=== PATIENT | male | born 1980 | race Two or more races ===

== ENCOUNTER 2017-03-01 09:13 | Emergency (ER) | payer OTHER ==
[~2017-03-01] VITALS: Ht 175.3 cm; Wt 103.9 kg
--- NOTE | 2017-03-01 09:30 | NUR ---
PT LEFT FOR CT VIA GURNEY.
[2017-03-01] MEDS ORDERED: LEVE500T9 PO (09:34)
[2017-03-01] MEDS ORDERED: DIVA500T2 PO (09:34)
[2017-03-01] MEDS ORDERED: PHEN100C4 PO (09:34)
--- NOTE | 2017-03-01 09:39 | NUR ---
PT RETURNED FROM CT.
[2017-03-01 09:49] LABS: PHENYTOIN (DILANTIN) 7.2 ug/ml (10.0-20.0)
[2017-03-01] MEDS ORDERED: LORAZEPAM 1 MG TABLET ONE (09:52)
[2017-03-01] MEDS ORDERED: LORAZEPAM 1 MG TABLET PO ONE (10:00)
--- NOTE | 2017-03-01 10:03 | NUR ---
Patient discharged to home in stable condition. Written and verbal after care instructions given. Patient verbalizes understanding of instruction. PT'S MOTHER IS DRIVING PT HOME. VSS.
[2017-03-01 10:04] VITALS: BP 114/79
== END 2017-03-01 10:05 | disposition home or self-care (01) ==
LOC: ER 09:15
DX: G40.909 Epilepsy, unspecified, not intractable, without status epilepticus (principal); R51 Headache; D49.6 Neoplasm of unspecified behavior of brain
CPT/HCPCS: 36415; 70450-TC; 80164-TC; 80185-TC; A4606; Z7610

== ENCOUNTER 2017-07-28 00:22 | Emergency (ER) | payer OTHER ==
[~2017-07-28] VITALS: Ht 175.3 cm; Wt 102.1 kg
[~2017-07-28 00:22] MED LIST: DIVA500T2 PO; LEVE500T9 PO; PHEN100C4 PO
--- NOTE | 2017-07-28 01:10 | NUR ---
PT CAME IN HOME WITH MOTHER, PER MOTHER "HE HAS HX OF BRAIN TUMORS AND SEIZURES, HE HAD A SEIZURE TODAY LASTING 30 SECONDS" PT A/O X 2 AT BASELINE, BREATHING EVEN/UNLABORED, NO C/O PAIN, SKIN WARM/DRY/INTACT
--- NOTE | 2017-07-28 01:18 | NUR ---
BACK FROM RADIOLOGY ON [facility]. AGNES ROY NOTED.
[2017-07-28 01:28] LABS: BASOPHILS % (AUTO) 0.5 % (0.0-2.0); EOSINOPHILS # (AUTO) 0.2 /CMM (0.0-0.7); EOSINOPHILS % (AUTO) 3.3 % (0.0-6.0); HEMATOCRIT 45 % (39-51); HEMOGLOBIN 15.6 g/dL (13.5-17.5); LYMPHOCYTES # (AUTO) 3.5 /CMM (0.8-4.8); LYMPHOCYTES % (AUTO) 48.2 % (20.0-44.0); MEAN CORPUSCULAR HEMOGLOBIN 32 PG (26.0-33.0); MEAN CORPUSCULAR HGB CONC 35 g/dl (31.0-36.0); MEAN CORPUSCULAR VOLUME 92 fL (80-96); MONOCYTES # (AUTO) 0.4 /CMM (0.1-1.30); MONOCYTES % (AUTO) 5.7 % (2.0-12.0); NEUTROPHILS % (AUTO) 42.3 % (43.0-81.0); PLATELET COUNT (AUTO) 206 /CMM (150-450); RDW COEFFICIENT OF VARIATION 12.9 (11.5-15.0); RED BLOOD CELL COUNT(AUTO) 4.88 MIL/uL (4.5-6.0); WHITE BLOOD COUNT (AUTO) 7.2 K/uL (4.3-11.0)
[2017-07-28 01:38] LABS: CALCIUM, SERUM 8.5 mg/dL (8.5-10.1); CREATININE 0.7 mg/dL (0.6-1.3); POTASSIUM 3.7 mmol/L (3.5-5.1)
[2017-07-28 01:44] LABS: ALBUMIN 3.7 g/dL (3.4-5.0); BILIRUBIN,TOTAL 0.2 mg/dL (0.2-1.0)
--- NOTE | 2017-07-28 02:05 | NUR ---
pt lying in bed, mother bedside, breathing even/unlabored, no c/o pain at this time, skin dry/intact
--- NOTE | 2017-07-28 02:50 | NUR ---
pt lying in bed, aroused to voice, breathing unlabored, no c/o pain, NAD noted at this time
[2017-07-28 03:13] LABS: APPEARANCE,URINE CLEAR (CLEAR); BILIRUBIN,URINE NEGATIVE (NEGATIVE); BLOOD, URINE NEGATIVE Ery/uL (NEGATIVE); COLOR,URINE YELLOW (YELLOW); KETONES,URINE 1+ (NEGATIVE); LEUKOCYTE ESTERASE ,URINE NEGATIVE (NEGATIVE); NITRITE, URINE NEGATIVE (NEGATIVE); PROTEIN,URINE NEGATIVE (NEGATIVE); UGLUCOSE NEGATIVE (NEGATIVE); UROBILINOGEN,URINE 0.2 EU/dL (0.2)
[2017-07-28 03:16] LABS: BACTERIA,URINE Rare /HPF (None Seen); RBC,URINE 0-2 /HPF (0-2); SQUAMOUS EPITHELIAL CELL,UR Few /HPF (None Seen); WBC,URINE 0-2 /HPF (0-3)
[2017-07-28 03:29] VITALS: BP 114/71
== END 2017-07-28 03:30 | disposition home or self-care (01) ==
LOC: ER 00:24
DX: G40.909 Epilepsy, unspecified, not intractable, without status epilepticus (principal)
CPT/HCPCS: 36415; 70450; 71010; 80048; 80076; 80185; 81001; 82962; 85025; 93005; 99285; A4606; Z7610; 81000-TC

== ENCOUNTER 2018-10-12 21:14 | Emergency (ER) | payer MEDICAID, OTHER ==
[~2018-10-12] VITALS: Ht 182.9 cm; Wt 99.8 kg
--- NOTE | 2018-10-12 22:15 | NUR ---
PT BIB FAMILY FOR HAVING ON AND OFF SEIZURES DURING THE DAY. PT MOM STATES THAT THE PT HAS BEEN "HAVING SEIZURES EVERY MINUTE AND THAT SHE GAVE AND EXTRA DOSE OF DILANTIN." PT IS NOT HAVING SEIZURE AT THIS MOMENT. PT IS ALERT AND AWAKE. NAD NOTED. RESPIRATIONS EVEN AND UNLABORED. PT PUT ON THE MONITOR. PENDING EVAL FROM ER .
--- NOTE | 2018-10-12 22:15 | NUR ---
SUPERVISOR NATURAL GAS PLANT AT BEDSIDE, LABS DRAWN AND SENT TO LAB.
[2018-10-12 22:33] LABS: BASOPHILS % (AUTO) 0.2 % (0.0-2.0); EOSINOPHILS % (AUTO) 2.2 % (0.0-6.0); HEMATOCRIT 44 % (39-51); HEMOGLOBIN 15.4 g/dL (13.5-17.5); LYMPHOCYTES # (AUTO) 4.1 /CMM (0.8-4.8); LYMPHOCYTES % (AUTO) 44.2 % (20.0-44.0); MEAN CORPUSCULAR HGB CONC 35 g/dl (31.0-36.0); MEAN CORPUSCULAR VOLUME 93 fL (80-96); MONOCYTES # (AUTO) 0.6 /CMM (0.1-1.30); MONOCYTES % (AUTO) 6.5 % (2.0-12.0); NEUTROPHILS # (AUTO) 4.4 /CMM (1.8-8.9); NEUTROPHILS % (AUTO) 46.9 % (43.0-81.0); PLATELET COUNT (AUTO) 215 /CMM (150-450); RED BLOOD CELL COUNT(AUTO) 4.71 MIL/uL (4.5-6.0); WHITE BLOOD COUNT (AUTO) 9.4 K/uL (4.3-11.0)
--- NOTE | 2018-10-12 22:40 | NUR ---
XRAY AT BEDSIDE.
[2018-10-12 22:44] LABS: CALCIUM, SERUM 8.1 mg/dL (8.5-10.1); CARBON DIOXIDE 29 mmol/L (21-32); CHLORIDE 105 mmol/L (98-107); CREATININE 0.7 mg/dL (0.6-1.3); GLUCOSE 107 mg/dL (74-106); SODIUM SERUM 144 mmol/L (136-145); UREA NITROGEN, BLOOD 14 mg/dL (7-18)
[2018-10-12 22:50] LABS: ALBUMIN 3.7 g/dL (3.4-5.0); ALCOHOL, BLOOD < 3 mg/dL (0-0); ALKALINE PHOSPHATASE 88 U/L (46-116); BILIRUBIN,TOTAL 0.2 mg/dL (0.2-1.0)
--- NOTE | 2018-10-12 22:56 | NUR ---
PT TAKEN TO CT.
--- NOTE | 2018-10-12 23:07 | NUR ---
PT RETURNED FROM CT AND PUT ON THE MONITOR. PT RESTING NAD NOTED.
[2018-10-12 23:14] LABS: ALANINE AMINOTRANSFERASE 40 U/L (12-78); ASPARTATE AMINOTRANSFERASE 19 U/L (15-37)
--- NOTE | 2018-10-12 23:37 | NUR ---
Pt being monitored.
[2018-10-12] MEDS ORDERED: phenytoin SODIUM IV 250 MG/5 ML VIAL IV ONE (23:59)
[2018-10-13] MEDS: PHENYTOIN SODIUM IV 1,000 MG in IV NS 0.9% 100 ML IV ONE (00:09)
[2018-10-13] MEDS: IV NS 0.9% 500 ML BAG IV ONE (00:09)
--- NOTE | 2018-10-13 00:41 | NUR ---
rPatient is resting comfortably in bed with eyes closed. Easily aroused. VSS
--- NOTE | 2018-10-13 01:34 | NUR ---
Patient discharged to home in stable condition. Written and verbal after care instructions given. Patient verbalizes understanding of instruction.IV removed. Catheter intact and site benign. Pressure and 4x4 applied to site. No bleeding noted.
[2018-10-13 01:37] VITALS: BP 120/84
== END 2018-10-13 01:39 | disposition home or self-care (01) ==
LOC: ER 21:16
DX: G40.909 Epilepsy, unspecified, not intractable, without status epilepticus (principal); R89.2 Abnormal level of other drugs, medicaments and biological substances in specimens from other organs, systems and tissues; R94.31 Abnormal electrocardiogram [ECG] [EKG]; Z98.890 Other specified postprocedural states
CPT/HCPCS: 36415; 70450-TC; 71045-TC; 80048-TC; 80076-TC; 80185-TC; 80305; 82962-TC; 85025-TC; 85730-TC; G0480; J1165; J7030; J7040

== ENCOUNTER 2019-04-06 12:43 | Emergency (ER) | payer MEDICAID ==
[~2019-04-06] VITALS: Ht 175.3 cm; Wt 112.0 kg
[2019-04-06 13:00] VITALS: BP 137/80
[2019-04-06] MEDS ORDERED: KETOROLAC TROMETHAMINE INJ 30 MG/ML VIAL ONE (13:15)
[2019-04-06] MEDS ORDERED: CYCLOBENZAPRINE 10 MG TABLET ONE (13:15)
[2019-04-06] MEDS ORDERED: KETOROLAC TROMETHAMINE INJ 30 MG/ML VIAL IM ONE (13:30)
[2019-04-06] MEDS ORDERED: CYCLOBENZAPRINE 10 MG TABLET PO ONE (13:30)
--- NOTE | 2019-04-06 14:07 | NUR ---
D/C HOME IN STABLE CONDITION.
== END 2019-04-06 14:10 | disposition home or self-care (01) ==
LOC: ER 12:49
DX: M54.2 Cervicalgia (principal); G40.909 Epilepsy, unspecified, not intractable, without status epilepticus; Z98.890 Other specified postprocedural states
CPT/HCPCS: 96372; 99283; J1885

== ENCOUNTER 2019-09-22 14:00 | Emergency (ER) | payer MEDICARE, OTHER ==
[~2019-09-22] VITALS: Ht 182.9 cm; Wt 106.6 kg
--- NOTE | 2019-09-22 15:30 | NUR ---
US tech at bedside. pt denies any pain at this time. No obvious distress NO acute changes
[2019-09-22] MEDS ORDERED: LEVETIRACETAM (500MG) 1,000 MG in IV NS 0.9% 100 ML IV SCH (16:00)
[2019-09-22 16:13] LABS: BASOPHILS % (AUTO) 0.6 % (0.0-2.0); HEMATOCRIT 43 % (39-51); HEMOGLOBIN 14.8 g/dL (13.5-17.5); LYMPHOCYTES % (AUTO) 46.2 % (20.0-44.0); MEAN CORPUSCULAR HGB CONC 35 g/dl (31.0-36.0); MEAN CORPUSCULAR VOLUME 93 fL (80-96); MONOCYTES # (AUTO) 0.4 /CMM (0.1-1.30); MONOCYTES % (AUTO) 6.4 % (2.0-12.0); NEUTROPHILS # (AUTO) 2.9 /CMM (1.8-8.9); NEUTROPHILS % (AUTO) 44.8 % (43.0-81.0); PLATELET COUNT (AUTO) 216 /CMM (150-450); WHITE BLOOD COUNT (AUTO) 6.4 K/uL (4.3-11.0)
[2019-09-22 16:20] LABS: CALCIUM, SERUM 8.4 mg/dL (8.5-10.1); CREATININE 0.7 mg/dL (0.6-1.3); POTASSIUM 4.2 mmol/L (3.5-5.1)
--- NOTE | 2019-09-22 16:26 | NUR ---
Pt updated by MD Patient discharged to home in stable condition. Written and verbal after care instructions given. Patient verbalizes understanding of instruction.
[2019-09-22] MEDS ORDERED: IV NS 0.9% 1,000 ML BAG IV ONE (16:30)
[2019-09-22 17:42] VITALS: BP 125/79
--- NOTE | 2019-09-22 19:14 | NUR ---
Nurse Knowledge Exchange W/JANENE Mckeon
--- NOTE | 2019-09-22 20:20 | NUR ---
IV removed. Catheter intact and site benign. Pressure and 4x4 applied to site. No bleeding noted.Patient discharged to home in stable condition. Written and verbal after care instructions given. Patient verbalizes understanding of instruction.
== END 2019-09-22 20:22 | disposition home or self-care (01) ==
LOC: ER 14:04
DX: R56.9 Unspecified convulsions (principal); Z98.890 Other specified postprocedural states; Z79.899 Other long term (current) drug therapy
CPT/HCPCS: 36415; 70450; 80048; 85025; 85730; 96365; 99284; J1953; J7030 ×2

== ENCOUNTER 2020-01-16 14:12 | Inpatient (IN) | payer MEDICARE, OTHER ==
[~2020-01-16] VITALS: Ht 182.9 cm; Wt 108.9 kg
--- NOTE | 2020-01-16 14:30 | NUR ---
patient bibmother had seizure x 6 episode in 3 days, no oral trauma witnessed by mother. On room air, breathing evenly and unlabored. connected to the monitor and pulse ox. kept comfortable, will continue to monitor accordingly.
[2020-01-16] MEDS ORDERED: LEVETIRACETAM (500MG) 500 MG in IV NS 0.9% 100 ML IV ONE (15:00)
[2020-01-16 15:01] LABS: BASOPHILS % (AUTO) 0.5 % (0.0-2.0); EOSINOPHILS % (AUTO) 2.8 % (0.0-6.0); HEMATOCRIT 41 % (39-51); HEMOGLOBIN 14.2 g/dL (13.5-17.5); LYMPHOCYTES # (AUTO) 2.9 /CMM (0.8-4.8); LYMPHOCYTES % (AUTO) 39.8 % (20.0-44.0); MEAN CORPUSCULAR HGB CONC 35 g/dl (31.0-36.0); MEAN CORPUSCULAR VOLUME 92 fL (80-96); MONOCYTES # (AUTO) 0.4 /CMM (0.1-1.30); MONOCYTES % (AUTO) 5.5 % (2.0-12.0); NEUTROPHILS # (AUTO) 3.8 /CMM (1.8-8.9); NEUTROPHILS % (AUTO) 51.4 % (43.0-81.0); PLATELET COUNT (AUTO) 237 /CMM (150-450); RED BLOOD CELL COUNT(AUTO) 4.41 MIL/uL (4.5-6.0); WHITE BLOOD COUNT (AUTO) 7.3 K/uL (4.3-11.0)
[2020-01-16 15:17] LABS: ALBUMIN 3.5 g/dL (3.4-5.0); BILIRUBIN,TOTAL 0.2 mg/dL (0.2-1.0); CALCIUM, SERUM 8.5 mg/dL (8.5-10.1); CREATININE 0.6 mg/dL (0.6-1.3); POTASSIUM 3.4 mmol/L (3.5-5.1); TOTAL PROTEIN, SERUM 6.8 g/dL (6.4-8.2)
[2020-01-16 16:11] LABS: PHENYTOIN (DILANTIN) 4.5 ug/ml (10.0-20.0)
[2020-01-16] MEDS ORDERED: CLON0.5T4 PO (16:11)
--- NOTE | 2020-01-16 17:20 | NUR ---
Report given to Arvind WATTERS for tha.
--- NOTE | 2020-01-16 17:45 | NUR ---
Wheeled patient via gurney accompanied by RN and emt in no distress. RN at bedside to assume care.
--- NOTE | 2020-01-16 18:50 | NUR ---
TELE/RN NOTES RECEIVED PATIENT FROM ER A MALE PATIENT 39 YEARS OLD. ON TELE MONITOR READING OF SR 72-73. WITH DIAGNOSES OF SEIZURE. WILL ENDORSED TO CARNIVAL WORKER FOR ADMISSION ASSESSMENT.
[2020-01-16] MEDS ORDERED: MAG HYDROX/AL HYDROX/SIMETH 30 ML UDC PO PRN (19:00)
[2020-01-16] MEDS ORDERED: ONDANSETRON HCL/PF 4 MG/2 ML VIAL IVP PRN (19:00)
[2020-01-16] MEDS ORDERED: Z GUARD REMEDY 2 OZ OINT TP PRN (19:00)
[2020-01-16] MEDS ORDERED: ZOLPIDEM TARTRATE 5 MG TABLET PO PRN (19:00)
[2020-01-16] MEDS ORDERED: HYDROCODONE/APAP 5/325MG 1 EACH TABLET PO PRN (19:00)
[2020-01-16] MEDS ORDERED: MAGNESIUM HYDROXIDE 30 ML UDC PO PRN (19:00)
[2020-01-16] MEDS ORDERED: LORAZEPAM INJ 2 MG/ML VIAL IV PRN (19:00)
--- NOTE | 2020-01-16 19:10 | NUR ---
TANDEM MILL ROLLER NOTES RECEIVED PT IN BED AWAKE AND ABLE TO MAKE NEEDS KNOWN. PT A/OX 1 AND CONFUSED. BREATHING EVEN AND UNLABORED WITH NO S/S OF ACUTE DISTRESS OR SOB NOTED. NO COMPLAINTS OF PAIN AT THIS TIME. SAFETY MEASURES IN PLACE WITH BED IN LOWEST LOCKED POSITION WITH SIDE RAILS UP X2. CALL LIGHT WITHIN REACH. WILL CONTINUE TO MONITOR.
--- NOTE | 2020-01-16 19:30 | NUR ---
PRIVATE ADVISOR NOTES PT REFUSED SKIN ASSESSMENT AND PICTURES. PT STATES THAT HE HAS NO PROBLEMS. WILL CONTINUE TO MONITOR.
[2020-01-16 20:00] VITALS: BP 138/78
[2020-01-16] MEDS ORDERED: LEVETIRACETAM (500MG) 500 MG in IV NS 0.9% 100 ML IV SCH (20:00)
[2020-01-17] VITALS: BP 116/68
[2020-01-17 04:00] VITALS: BP 98/68
[2020-01-17] MEDS ORDERED: phenytoin SODIUM IV 1,000 MG in IV NS 0.9% 100 ML IV ONE (06:00)
[2020-01-17 07:19] LABS: BASOPHILS % (AUTO) 0.5 % (0.0-2.0); EOSINOPHILS % (AUTO) 3.5 % (0.0-6.0); HEMATOCRIT 40 % (39-51); LYMPHOCYTES # (AUTO) 2.7 /CMM (0.8-4.8); LYMPHOCYTES % (AUTO) 40.9 % (20.0-44.0); MEAN CORPUSCULAR HGB CONC 35 g/dl (31.0-36.0); MEAN CORPUSCULAR VOLUME 92 fL (80-96); MONOCYTES # (AUTO) 0.4 /CMM (0.1-1.30); MONOCYTES % (AUTO) 6.4 % (2.0-12.0); NEUTROPHILS # (AUTO) 3.2 /CMM (1.8-8.9); NEUTROPHILS % (AUTO) 48.7 % (43.0-81.0); PLATELET COUNT (AUTO) 219 /CMM (150-450); RED BLOOD CELL COUNT(AUTO) 4.39 MIL/uL (4.5-6.0); WHITE BLOOD COUNT (AUTO) 6.5 K/uL (4.3-11.0)
--- NOTE | 2020-01-17 07:36 | NUR ---
SUGAR TRUCKER NOTES PT IN BED AWAKE AND ABLE TO MAKE NEEDS KNOWN. PT A/OX 1 AND CONFUSED. BREATHING EVEN AND UNLABORED WITH NO S/S OF ACUTE DISTRESS OR SOB NOTED THROUGHOUT SHIFT. NO COMPLAINTS OF PAIN AT THIS TIME. SAFETY MEASURES IN PLACE WITH BED IN LOWEST LOCKED POSITION WITH SIDE RAILS UP X2. CALL LIGHT WITHIN REACH. WILL ENDORSE TO ONCOMING NURSE FOR PIERO.
[2020-01-17 07:40] LABS: CALCIUM, SERUM 8.5 mg/dL (8.5-10.1); CREATININE 0.6 mg/dL (0.6-1.3); MAGNESIUM 2.1 mg/dL (1.8-2.4); PHOSPHORUS 4.2 mg/dL (2.5-4.9); POTASSIUM 3.8 mmol/L (3.5-5.1)
--- NOTE | 2020-01-17 07:45 | NUR ---
MS/RN Opening note Patient received from auger machine offbearer. A/O X1-2, Estonian speaking, room air saturation 95%. appears comfortable at this time, no complaints of pain or discomfort. Dilantin, hung on previous shift, infusing. No signs of any infiltration seen. Bed in low setting, break locked. Side rails padded to prevent injury incase of seizure. call light within reach, will continue to monitor and ensure safety.
[2020-01-17 07:58] LABS: THYROID STIMULATING HORMONE 3.733 uIU/mL (0.358-3.74)
[2020-01-17] MEDS: ACETAMINOPHEN 325 MG TABLET PO PRN ×2 (07:58→20:40)
[2020-01-17] MEDS: LEVETIRACETAM (500MG) 1,500 MG in IV NS 0.9% 100 ML IV SCH ×2 (07:59→20:40)
[2020-01-17 08:00] VITALS: BP 112/75
[2020-01-17] MEDS: PHENYTOIN EXTENDED RELEASE 100 MG CAPSULE PO SCH ×2 (09:05→20:40)
--- NOTE | 2020-01-17 09:47 | NUR ---
MS/RN S/B Dr Flor Seen by MD - continue with recommendations as given by Dr Aguayo. Dr Flor provided with mother's cellphone number to call with update.
--- NOTE | 2020-01-17 14:02 | NUR ---
MS/RN Rounds No seizure activity noted this morning, will continue to monitor.
[2020-01-17 16:00] VITALS: BP 110/73
[2020-01-17] MEDS: clonazePAM 0.5 MG TABLET PO SCH (17:17)
--- NOTE | 2020-01-17 18:31 | NUR ---
MS/RN End note No seizure activity throughout the shift. Calm and cooperative, ambulating to and from bathroom with standby assist. All needs meet. Mother updated by phone as to plan of care, stated that she had also spoken at length to Dr Flor earlier today. Will endorse to nightshift.
--- NOTE | 2020-01-17 19:00 | NUR ---
ms barnett initial notes received report from am nurse Nadira/RN while doing our rounds. Pt awake and alert watching TV at this time. not in any discomfort. Able to ambulate with standby assistance for safety. Danish speaking but understood some indonesian. No signs of any seizure at this time. kept him warm and comfortable at all times. will continue monitoring. place call light at reach. sitter at the bed side for safety. Addendum: 01/18/20 at 4444 by JOHNNY TOSCANO LVN disregard this noted wrong date and wrong time documented
[2020-01-17 20:00] VITALS: BP 113/86
[2020-01-18] MEDS ORDERED: VALPROATE 1,000 MG in IV NS 0.9% 100 ML IV STA (05:52)
[2020-01-18 06:58] LABS: BASOPHILS % (AUTO) 0.5 % (0.0-2.0); EOSINOPHILS % (AUTO) 4.4 % (0.0-6.0); HEMATOCRIT 41 % (39-51); HEMOGLOBIN 14.1 g/dL (13.5-17.5); LYMPHOCYTES # (AUTO) 2.9 /CMM (0.8-4.8); LYMPHOCYTES % (AUTO) 45.4 % (20.0-44.0); MEAN CORPUSCULAR HGB CONC 35 g/dl (31.0-36.0); MEAN CORPUSCULAR VOLUME 92 fL (80-96); MONOCYTES # (AUTO) 0.4 /CMM (0.1-1.30); NEUTROPHILS # (AUTO) 2.8 /CMM (1.8-8.9); NEUTROPHILS % (AUTO) 43.7 % (43.0-81.0); PLATELET COUNT (AUTO) 223 /CMM (150-450); RED BLOOD CELL COUNT(AUTO) 4.42 MIL/uL (4.5-6.0); WHITE BLOOD COUNT (AUTO) 6.3 K/uL (4.3-11.0)
--- NOTE | 2020-01-18 07:00 | NUR ---
MS/RN End note No seizure activity throughout the shift. patient calm and cooperative. urine specimen collected. ambulating to and from bathroom with standby assist. pharmacy called and requested they mix new stat order by dr. stone. state they will deliver. will endorse to am shift.
[2020-01-18 07:24] LABS: CALCIUM, SERUM 8.2 mg/dL (8.5-10.1); CREATININE 0.6 mg/dL (0.6-1.3); MAGNESIUM 1.9 mg/dL (1.8-2.4); PHOSPHORUS 4.1 mg/dL (2.5-4.9); POTASSIUM 3.8 mmol/L (3.5-5.1)
[2020-01-18 08:00] VITALS: BP 118/79
[2020-01-18] MEDS: LEVETIRACETAM (500MG) 1,500 MG in IV NS 0.9% 100 ML IV SCH ×2 (08:00→20:44)
[2020-01-18] MEDS: PHENYTOIN EXTENDED RELEASE 100 MG CAPSULE PO SCH ×2 (09:31→21:17)
[2020-01-18] MEDS: clonazePAM 0.5 MG TABLET PO SCH ×2 (09:31→17:38)
[2020-01-18] MEDS: DIVALPROEX SODIUM 500 MG TABLET.DR PO SCH ×2 (09:31→12:51)
--- NOTE | 2020-01-18 15:00 | NUR ---
SW consulted with Elevator Examiner, Kevin, about receiving report that the pt needs an assessment for continuation of care. Elevator Examiner stated that he would inform the SW if anything is needed from social insurance specialist for this case.
[2020-01-18 15:56] VITALS: BP 122/82
[2020-01-18 18:09] LABS: PHENYTOIN (DILANTIN) 7.1 ug/ml (10.0-20.0)
--- NOTE | 2020-01-18 19:00 | NUR ---
ms ericka initial notes received report from am nurse Nadira/RN while doing our rounds. Pt awake and alert watching TV at this time. not in any discomfort. Able to ambulate with standby assistance for safety. English speaking but understood some spanish. No signs of any seizure at this time. kept him warm and comfortable at all times. will continue monitoring. place call light at reach. sitter at the bed side for safety.
[2020-01-18 20:00] VITALS: BP 122/85
--- NOTE | 2020-01-18 20:44 | NUR ---
ms ericka notes Keppra IVP bag hung by another nurse as ordered. no signs of any seizure noted. will continue monitoring.
--- NOTE | 2020-01-19 | NUR ---
ms roller repairer notes pt sleeping comfortably in bed without any distress noted.
[2020-01-19] MEDS ORDERED: phenytoin SODIUM IV 500 MG in IV NS 0.9% 50 ML IV STA (05:49)
[2020-01-19 06:30] LABS: BASOPHILS % (AUTO) 0.4 % (0.0-2.0); EOSINOPHILS % (AUTO) 4.6 % (0.0-6.0); HEMATOCRIT 41 % (39-51); HEMOGLOBIN 14.3 g/dL (13.5-17.5); LYMPHOCYTES # (AUTO) 3.2 /CMM (0.8-4.8); MEAN CORPUSCULAR HGB CONC 35 g/dl (31.0-36.0); MEAN CORPUSCULAR VOLUME 92 fL (80-96); MONOCYTES # (AUTO) 0.5 /CMM (0.1-1.30); MONOCYTES % (AUTO) 6.6 % (2.0-12.0); NEUTROPHILS % (AUTO) 42.4 % (43.0-81.0); PLATELET COUNT (AUTO) 216 /CMM (150-450); RED BLOOD CELL COUNT(AUTO) 4.49 MIL/uL (4.5-6.0)
[2020-01-19 06:50] LABS: CALCIUM, SERUM 8.1 mg/dL (8.5-10.1); CREATININE 0.7 mg/dL (0.6-1.3); PHOSPHORUS 4.2 mg/dL (2.5-4.9); POTASSIUM 3.6 mmol/L (3.5-5.1)
--- NOTE | 2020-01-19 07:13 | NUR ---
ms supervisor livestock yard closing notes pt resting at this time without any distress noted. Stable jeffery the night and slept well. all due meds given and all needs met. kept him warm and comfortable at all times. will continue monitoring. place call light at reach. endorse.
--- NOTE | 2020-01-19 08:00 | NUR ---
MS RN OPENING NOTES RECEIVED PATIENT IN BED, AWAKE, A/O X2, SETSWANA SPEAKING, LFA 20G SALINE LOCK, NO REDNESS OR INFILTRATION NOTED, NO SIGNS OF RESPIRATORY DISTRESS, SIDE RAILS UP.
[2020-01-19] MEDS ORDERED: LEVETIRACETAM (250 MG) 250 MG TABLET PO SCH (09:00)
[2020-01-19] MEDS: clonazePAM 0.5 MG TABLET PO SCH (09:10)
[2020-01-19] MEDS: DIVALPROEX SODIUM 500 MG TABLET.DR PO SCH ×2 (09:11→13:07)
[2020-01-19] MEDS: PHENYTOIN EXTENDED RELEASE 100 MG CAPSULE PO SCH (09:11)
[2020-01-19] MEDS ORDERED: PHEN100C4 PO (11:54)
--- NOTE | 2020-01-19 14:44 | NUR ---
MS PERSONNEL INTERVIEWER NOTES PATIENT WAS AMBULATORY, COHERENT, COOPERATIVE, NO SIGNS OF RESPIRATORY DISTRESS, WALKED PATIENT TO LOBBY TO MEET WITH HIS MOTHER, MOTHER SIGNED THE IDSCHARGE PAPERS.
[2020-01-19] MEDS ORDERED: PHENYTOIN EXTENDED RELEASE 100 MG CAPSULE PO SCH (15:00)
== END 2020-01-19 14:45 | disposition home or self-care (01) | DRG 101 ==
LOC: ER 14:12 → TELE 17:17 → MED 01-17 12:08
PROVIDERS: ADMIT Student in an Organized Health Care Education/Training Program; ATTEND Student in an Organized Health Care Education/Training Program
DX: G40.909 Epilepsy, unspecified, not intractable, without status epilepticus (principal); E87.6 Hypokalemia; Z86.03 Personal history of neoplasm of uncertain behavior
CPT/HCPCS: 36415; 70450-TC; 71045-TC; 80048-TC; 80061-TC; 80076-TC; 80164-TC; 80185-TC; 83735-TC; 84100-TC; 84443-TC; 85025-TC; 85730-TC; 87081-TC; 97116-TC; 97530-TC; A4216; G0378; J1165; J1953; J3490; J7030; J7040

== ENCOUNTER 2020-06-08 13:30 | Emergency (ER) | payer MEDICARE, OTHER ==
[~2020-06-08] VITALS: Ht 175.3 cm; Wt 111.1 kg
[~2020-06-08 13:30] MED LIST changes: +CLON0.5T4 PO
[2020-06-08 13:40] VITALS: BP 126/71
--- NOTE | 2020-06-08 14:25 | NUR ---
APPLIED WET TO DRY DRESSING ON BURN WOUND ON LOWER ABD AREA & RT THIGH & COVERED WITH KERLIX DRESSING PER DR. WU'S ORDER. PT ADELINE WELL. Patient discharged to home in stable condition. Written and verbal after care instructions given LEGAL GUARDIAN. INSTRUCTED TO GO TO [facility] TODAY FOR FURTHER EVAL. LEGAL GUARDIAN VERBALIZES UNDERSTANDING.
== END 2020-06-08 14:45 | disposition home or self-care (01) ==
LOC: ER 13:31
DX: T21.22XA Burn of second degree of abdominal wall, initial encounter (principal); T24.211A Burn of second degree of right thigh, initial encounter; T31.0 Burns involving less than 10% of body surface; Z79.899 Other long term (current) drug therapy; Z98.890 Other specified postprocedural states; X10.0XXA Contact with hot drinks, initial encounter; Y93.89 Activity, other specified; Y92.89 Other specified places as the place of occurrence of the external cause; Y99.8 Other external cause status

== ENCOUNTER 2020-12-23 18:20 | Emergency (ER) | payer MEDICARE, OTHER ==
[~2020-12-23] VITALS: Ht 175.3 cm; Wt 117.5 kg
[2020-12-23 19:14] LABS: BASOPHILS % (AUTO) 0.5 % (0.0-2.0); HEMATOCRIT 44 % (39-51); HEMOGLOBIN 15.2 g/dL (13.5-17.5); LYMPHOCYTES # (AUTO) 3.3 /CMM (0.8-4.8); LYMPHOCYTES % (AUTO) 41.1 % (20.0-44.0); MEAN CORPUSCULAR HGB CONC 35 g/dl (31.0-36.0); MEAN CORPUSCULAR VOLUME 93 fL (80-96); MONOCYTES # (AUTO) 0.6 /CMM (0.1-1.30); NEUTROPHILS % (AUTO) 49.4 % (43.0-81.0); PLATELET COUNT (AUTO) 224 /CMM (150-450); RED BLOOD CELL COUNT(AUTO) 4.73 MIL/uL (4.5-6.0); WHITE BLOOD COUNT (AUTO) 8.1 K/uL (4.3-11.0)
--- NOTE | 2020-12-23 19:18 | NUR ---
bibmother, came in due to seizure x 3 today and episode of falling. On room air, breathing evenly and unlabored. Connected to the monitor and pulse ox. kept comfortable, will continue to monitor accordingly.
--- NOTE | 2020-12-23 19:19 | NUR ---
IV access initiated and blood drawned and sent to lab.
[2020-12-23 19:21] LABS: CALCIUM, SERUM 8.5 mg/dL (8.5-10.1); CREATININE 0.7 mg/dL (0.6-1.3); POTASSIUM 3.8 mmol/L (3.5-5.1)
[2020-12-23] MEDS ORDERED: LEVETIRACETAM (500MG) 1,000 MG in IV NS 0.9% 100 ML IV SCH (19:30)
[2020-12-23 19:44] LABS: PHENYTOIN (DILANTIN) 4.4 ug/ml (10.0-20.0)
[2020-12-23] MEDS ORDERED: PHENYTOIN EXTENDED RELEASE 100 MG CAPSULE PO ONE ×2 (20:00→20:23)
--- NOTE | 2020-12-23 20:37 | NUR ---
Patient discharged to home in stable condition. Written and verbal after care instructions given. Patient verbalizes understanding of instruction. IV removed. Catheter intact and site benign. Pressure and 4x4 applied to site. No bleeding noted.
[2020-12-23 20:39] VITALS: BP 130/75
== END 2020-12-23 20:39 | disposition home or self-care (01) ==
LOC: ER 18:24
DX: G40.909 Epilepsy, unspecified, not intractable, without status epilepticus (principal); R51.9 Headache, unspecified; Z98.890 Other specified postprocedural states; Z79.899 Other long term (current) drug therapy; W19.XXXA Unspecified fall, initial encounter; Y93.01 Activity, walking, marching and hiking; Y92.89 Other specified places as the place of occurrence of the external cause; Y99.8 Other external cause status
CPT/HCPCS: 36415; 70450; 80048; 80164; 80185; 85025; 96365; 99284; J1953; J7030

== ENCOUNTER 2021-04-26 17:58 | Emergency (ER) | payer MEDICARE, OTHER ==
[~2021-04-26] VITALS: Ht 177.8 cm; Wt 113.9 kg
--- NOTE | 2021-04-26 18:00 | NUR ---
Rceved pt came by ambulnce s/p seizure no active SZ at this time awake period of confution
[2021-04-26] MEDS ORDERED: LEVETIRACETAM (500MG) 500 MG/5 ML VIAL IV ONE ×3 (18:43→18:47)
[2021-04-26] MEDS: LEVETIRACETAM (500MG) 1,000 MG in IV NS 0.9% 100 ML IV SCH (18:56)
--- NOTE | 2021-04-26 19:15 | NUR ---
keppra 1000 mg ivpb infused and patent hand off to CHRISTOPHER WATTERS
[2021-04-26 19:24] LABS: BASOPHILS % (AUTO) 0.6 % (0.0-2.0); EOSINOPHILS % (AUTO) 2.3 % (0.0-6.0); HEMATOCRIT 45 % (39-51); LYMPHOCYTES # (AUTO) 3.1 K/uL (0.8-4.8); LYMPHOCYTES % (AUTO) 37.5 % (20.0-44.0); MEAN CORPUSCULAR HGB CONC 34 g/dl (31.0-36.0); MEAN CORPUSCULAR VOLUME 93 fL (80-96); MONOCYTES # (AUTO) 0.4 K/uL (0.1-1.30); MONOCYTES % (AUTO) 5.3 % (2.0-12.0); NEUTROPHILS # (AUTO) 4.4 K/uL (1.8-8.9); NEUTROPHILS % (AUTO) 54.3 % (43.0-81.0); PLATELET COUNT (AUTO) 226 K/uL (150-450); RED BLOOD CELL COUNT(AUTO) 4.82 MIL/uL (4.5-6.0); WHITE BLOOD COUNT (AUTO) 8.2 K/uL (4.3-11.0)
[2021-04-26 19:36] LABS: VALPROIC ACID 40 ug/mL (50-100)
[2021-04-26 19:49] LABS: ALANINE AMINOTRANSFERASE 37 U/L (12-78); ALBUMIN 3.4 g/dL (3.4-5.0); ALCOHOL, BLOOD < 3 mg/dL (0-0); ALKALINE PHOSPHATASE 90 U/L (46-116); ASPARTATE AMINOTRANSFERASE 20 U/L (15-37); BILIRUBIN,TOTAL 0.1 mg/dL (0.2-1.0); CALCIUM, SERUM 8.3 mg/dL (8.5-10.1); CARBON DIOXIDE 26 mmol/L (21-32); CHLORIDE 105 mmol/L (98-107); CREATININE 0.6 mg/dL (0.6-1.3); GLUCOSE 95 mg/dL (74-106); POTASSIUM 3.8 mmol/L (3.5-5.1); SODIUM SERUM 142 mmol/L (136-145); TOTAL PROTEIN, SERUM 6.8 g/dL (6.4-8.2); UREA NITROGEN, BLOOD 9 mg/dL (7-18)
[2021-04-26] MEDS ORDERED: DIVALPROEX SODIUM 250 MG TABLET.DR PO ONE (20:32)
[2021-04-26] MEDS ORDERED: PHENYTOIN EXTENDED RELEASE 100 MG CAPSULE PO ONE (20:32)
[2021-04-26] MEDS: DIVALPROEX SODIUM 250 MG TABLET.DR PO ONE (20:37)
[2021-04-26] MEDS: PHENYTOIN EXTENDED RELEASE 100 MG CAPSULE PO ONE (20:37)
[2021-04-26 20:48] VITALS: BP 127/72
--- NOTE | 2021-04-26 21:15 | NUR ---
Patient discharged to home in stable condition. Written and verbal after care instructions given. Patient verbalizes understanding of instruction.
== END 2021-04-26 21:15 | disposition home or self-care (01) ==
LOC: ER 17:59
DX: G40.909 Epilepsy, unspecified, not intractable, without status epilepticus (principal); Z98.890 Other specified postprocedural states; Z79.899 Other long term (current) drug therapy
CPT/HCPCS: 36415; 80048; 80076; 80164; 80185; 80320; 85025; 96365; 99284; J1953 ×4; J7030; J7050; G0480

== ENCOUNTER 2021-10-29 04:13 | Inpatient (IN) | payer MEDICARE, OTHER ==
[~2021-10-29] VITALS: Ht 175.3 cm; Wt 114.8 kg
--- NOTE | 2021-10-29 04:35 | NUR ---
CARLY FROM HOME TO ER BED 6. AAOX2. NOT IN RESP DISTRESS. BROUGHT IN FOR S/P SEIZURE. WITNESSED BY THE MOTHER. TONIC CLONIC 1 MIN. NO NOTED ORAL TRAUMA. NO REPORTS UF MISSED NADIR. AT BEDSIDE FOR EVAL
[2021-10-29] MEDS ORDERED: IV NS 0.9% 1,000 ML BAG IV ONE (05:00)
[2021-10-29] MEDS ORDERED: LORAZEPAM INJ 2 MG/ML VIAL IVP ONE (05:00)
[2021-10-29] MEDS ORDERED: LORAZEPAM INJ 2 MG/ML VIAL ONE (05:05)
[2021-10-29 05:11] LABS: BASOPHILS % (AUTO) 0.3 % (0.0-2.0); EOSINOPHILS % (AUTO) 1.4 % (0.0-6.0); HEMATOCRIT 43 % (39-51); HEMOGLOBIN 15.1 g/dL (13.5-17.5); LYMPHOCYTES # (AUTO) 5.8 K/uL (0.8-4.8); LYMPHOCYTES % (AUTO) 42.1 % (20.0-44.0); MEAN CORPUSCULAR HGB CONC 35 g/dl (31.0-36.0); MEAN CORPUSCULAR VOLUME 92 fL (80-96); NEUTROPHILS # (AUTO) 6.8 K/uL (1.8-8.9); NEUTROPHILS % (AUTO) 49.2 % (43.0-81.0); PLATELET COUNT (AUTO) 256 K/uL (150-450); RED BLOOD CELL COUNT(AUTO) 4.73 MIL/uL (4.5-6.0); WHITE BLOOD COUNT (AUTO) 13.9 K/uL (4.3-11.0)
--- NOTE | 2021-10-29 05:24 | NUR ---
PT TAKEN TO CT
--- NOTE | 2021-10-29 05:38 | NUR ---
DR JAQUEZ ON THE PHONE WITH DR MAZA FOR NEURO CONSULT
--- NOTE | 2021-10-29 05:48 | NUR ---
COVID SWAB SENT TO LAB
[2021-10-29 05:50] LABS: ALANINE AMINOTRANSFERASE 25 U/L (12-78); ALBUMIN 3.7 g/dL (3.4-5.0); ALCOHOL, BLOOD < 3 mg/dL (0-0); ALKALINE PHOSPHATASE 72 U/L (46-116); ASPARTATE AMINOTRANSFERASE 12 U/L (15-37); BILIRUBIN,DIRECT 0.1 mg/dL (0.0-0.2); BILIRUBIN,TOTAL 0.2 mg/dL (0.2-1.0); CALCIUM, SERUM 8.9 mg/dL (8.5-10.1); CARBON DIOXIDE 28 mmol/L (21-32); CHLORIDE 105 mmol/L (98-107); CREATININE 0.8 mg/dL (0.6-1.3); GLUCOSE 99 mg/dL (74-106); POTASSIUM 3.5 mmol/L (3.5-5.1); SODIUM SERUM 142 mmol/L (136-145); TOTAL PROTEIN, SERUM 7.2 g/dL (6.4-8.2); UREA NITROGEN, BLOOD 15 mg/dL (7-18)
[2021-10-29] MEDS ORDERED: MORPHINE SULFATE INJ 2 MG/ML DISP.SYRIN IV PRN (06:00)
[2021-10-29] MEDS ORDERED: LORAZEPAM INJ 2 MG/ML VIAL IV PRN (06:00)
[2021-10-29] MEDS ORDERED: ONDANSETRON HCL/PF 4 MG/2 ML VIAL IVP PRN (06:00)
[2021-10-29] MEDS ORDERED: ACETAMINOPHEN 325 MG TABLET PO PRN (06:00)
[2021-10-29 06:34] LABS: PHENYTOIN (DILANTIN) 0.7 ug/ml (10.0-20.0); VALPROIC ACID 106 ug/mL (50-100)
[2021-10-29] MEDS ORDERED: NAPR-1009 PO (07:31)
[2021-10-29] MEDS ORDERED: LACO200T2 PO (07:31)
[2021-10-29] MEDS ORDERED: clonazePAM 0.5 MG TABLET PO SCH (09:00)
[2021-10-29] MEDS ORDERED: DIVALPROEX SODIUM 500 MG TABLET.DR PO SCH (09:00)
[2021-10-29] MEDS ORDERED: PHENYTOIN EXTENDED RELEASE 100 MG CAPSULE PO SCH (09:00)
[2021-10-29] MEDS ORDERED: ENOXAPARIN SODIUM 40 MG/0.4 ML DISP.SYRIN SQ ONE (09:30)
[2021-10-29] MEDS ORDERED: DIVALPROEX SODIUM 500 MG TABLET.DR PO ONE ×2 (09:31→17:22)
[2021-10-29] MEDS ORDERED: LEVETIRACETAM (250 MG) 250 MG TABLET PO ONE (09:31)
[2021-10-29] MEDS ORDERED: DIVALPROEX SODIUM 250 MG TABLET.DR PO ONE ×2 (09:31→17:23)
[2021-10-29] MEDS: ENOXAPARIN SODIUM 40 MG/0.4 ML DISP.SYRIN SQ SCH (09:36)
[2021-10-29] MEDS: DIVALPROEX SODIUM 250 MG TABLET.DR PO SCH ×2 (09:36→17:24)
[2021-10-29] MEDS: LEVETIRACETAM (250 MG) 250 MG TABLET PO SCH ×2 (09:36→21:51)
[2021-10-29] MEDS: IV NS 0.9% 1,000 ML IV PRN ×2 (09:40→22:35)
[2021-10-29] MEDS: LACOSAMIDE 50 MG TABLET PO SCH ×2 (11:19→21:51)
[2021-10-29] MEDS ORDERED: LACOSAMIDE 50 MG TABLET ONE (11:21)
--- NOTE | 2021-10-29 19:19 | NUR ---
GOT BED 323-1 JANENE MELVIN
--- NOTE | 2021-10-29 20:02 | NUR ---
REPORT GIVEN TO JANENE DOBBS
[2021-10-29 21:00] VITALS: BP 135/76
--- NOTE | 2021-10-29 21:04 | NUR ---
PT TRANSFERRED TO 3W VIA ACLS PROTOCOL
--- NOTE | 2021-10-29 21:10 | NUR ---
DIAMOND MERCHANTTECHNICAL MAINTENANCE SPECIALIST NOTES PATIENT ARRIVED ON UNIT VIA GURNEY WITH ER NURSE. PATIENT LAYING AWAKE IN BED. A/O X2-3. PATIENT WITH REGULAR AND UNLABORED BREATHING ON ROOM AIR, TOLERATED WELL. NO SIGNS OR SYMPTOMS OF DISTRESS NOTED AT THIS TIME. NO COMPLAINS OF PAIN OR DISCOMFORT AT THIS TIME. PATIENT ON TELE MONITOR READING SR @ 66 BPM. IV ACCESS L WRIST G #20 SL AND R HAND G # 20 SL. IV ACCESSES PATENT AND INTACT. SAFETY PRECAUTIONS ENFORCED WITH BED LOCKED AND AT LOWEST POSITION. CALL LIGHT WITHIN REACH AT ALL TIMES. WILL CONTINUE TO MONITOR PATIENT. Addendum: 10/30/21 at 0253 by DILIA LACEY RN IV ACCESS R WRIST G #20 SL AND L HAND G #20 SL. IV ACCESSES PATENT AND INTACT.
[2021-10-30] VITALS: BP 110/73
[2021-10-30 04:00] VITALS: BP 120/78
[2021-10-30 06:38] LABS: BASOPHILS % (AUTO) 0.3 % (0.0-2.0); EOSINOPHILS % (AUTO) 1.9 % (0.0-6.0); HEMATOCRIT 44 % (39-51); LYMPHOCYTES % (AUTO) 29.6 % (20.0-44.0); MEAN CORPUSCULAR HGB CONC 34 g/dl (31.0-36.0); MEAN CORPUSCULAR VOLUME 93 fL (80-96); MONOCYTES # (AUTO) 0.9 K/uL (0.1-1.30); MONOCYTES % (AUTO) 6.7 % (2.0-12.0); NEUTROPHILS # (AUTO) 8.2 K/uL (1.8-8.9); NEUTROPHILS % (AUTO) 61.5 % (43.0-81.0); PLATELET COUNT (AUTO) 193 K/uL (150-450); RED BLOOD CELL COUNT(AUTO) 4.71 MIL/uL (4.5-6.0); WHITE BLOOD COUNT (AUTO) 13.4 K/uL (4.3-11.0)
--- NOTE | 2021-10-30 07:01 | NUR ---
GRILL CHEF CLOSING NOTES PATIENT STILL LAYING AWAKE IN BED. A/O X2. PATIENT WITH REGULAR AND UNLABORED BREATHING ON ROOM AIR, TOLERATED WELL. NO SIGNS OR SYMPTOMS OF DISTRESS NOTED AT THIS TIME. NO COMPLAINS OF PAIN OR DISCOMFORT AT THIS TIME. PATIENT ON TELE MONITOR READING SR @ 65 BPM. IV ACCESS L HAND G #20 SL AND R WRIST G # 20 INFUSING NS @ 75 ML/HR. IV ACCESSES PATENT AND INTACT. SAFETY PRECAUTIONS ENFORCED WITH BED LOCKED AND AT LOWEST POSITION. CALL LIGHT WITHIN REACH AT ALL TIMES. WILL ENDORSE CONTINUITY OF CARE TO DAY SHIFT NURSE.
--- NOTE | 2021-10-30 07:30 | NUR ---
TWISTING OPERATOR OPENING NOTES RECEIVED PATIENT AWAKE IN BED. A/O X2. PATIENT WITH REGULAR AND UNLABORED BREATHING ON ROOM AIR, TOLERATED WELL. NO SIGNS OR SYMPTOMS OF DISTRESS NOTED AT THIS TIME. NO COMPLAINS OF PAIN OR DISCOMFORT AT THIS TIME. PATIENT ON TELE MONITOR . IV ACCESS L HAND G #20 SL AND R WRIST G # 20 INFUSING NS @ 75 ML/HR. IV ACCESSES PATENT AND INTACT. SAFETY PRECAUTIONS IN PLACE. SAFETY FOR SEIZURE IN PLACE. NO EPISODE NOTED. BED LOCKED AND AT LOWEST POSITION. CALL LIGHT WITHIN REACH AT ALL TIMES. WILL CONTINUE TO MONITOR.
[2021-10-30 08:00] VITALS: BP 111/77
[2021-10-30] MEDS: DIVALPROEX SODIUM 250 MG TABLET.DR PO SCH ×2 (09:00→16:58)
[2021-10-30] MEDS: LEVETIRACETAM (250 MG) 250 MG TABLET PO SCH ×2 (09:14→21:21)
[2021-10-30] MEDS: LACOSAMIDE 50 MG TABLET PO SCH ×2 (09:14→21:20)
[2021-10-30] MEDS: ENOXAPARIN SODIUM 40 MG/0.4 ML DISP.SYRIN SQ SCH (09:15)
[2021-10-30 09:49] LABS: ALBUMIN 3.5 g/dL (3.4-5.0); BILIRUBIN,TOTAL 0.4 mg/dL (0.2-1.0); CALCIUM, SERUM 8.5 mg/dL (8.5-10.1); CREATININE 0.7 mg/dL (0.6-1.3); MAGNESIUM 2.2 mg/dL (1.8-2.4); PHOSPHORUS 3.7 mg/dL (2.5-4.9); POTASSIUM 3.7 mmol/L (3.5-5.1)
[2021-10-30] MEDS: IV NS 0.9% 1,000 ML IV PRN (15:26)
[2021-10-30 16:00] VITALS: BP 116/72
--- NOTE | 2021-10-30 16:02 | NUR ---
RN NOTES PER MD AND CHARGE NURSE ELIZABETH HELD 0900 AND 1700 DEPAKOTE FOR VALPORIC ACID 106 LEVEL.
--- NOTE | 2021-10-30 19:22 | NUR ---
MS RN CLOSING NOTES PATIENT AWAKE IN BED. A/O X2. PATIENT WITH REGULAR AND UNLABORED BREATHING ON ROOM AIR, TOLERATED WELL. NO SIGNS OR SYMPTOMS OF DISTRESS NOTED AT THIS TIME. NO COMPLAINS OF PAIN OR DISCOMFORT AT THIS TIME. P . IV ACCESS L HAND G #20 SL AND R WRIST G # 20 INTACT. FROM LEFT HAND IV SITE IS INFUSING NS @ 75 ML/HR. IV ACCESSES PATENT AND INTACT. SAFETY PRECAUTIONS IN PLACE. SAFETY FOR SEIZURE IN PLACE. NO EPISODE NOTED.DUE MEDS GIVEN ORDERED. BED LOCKED AND AT LOWEST POSITION. SIDE RAILS PADDED FOR SAFETY. CALL LIGHT WITHIN REACH AT ALL TIMES. WILL ENDORSE FOR PIERO.
[2021-10-30 20:00] VITALS: BP 116/76
--- NOTE | 2021-10-30 20:18 | NUR ---
RN OPENING NOTES: RECEIVED PATIENT AWAKEIN BED, BED IN LOW POSITION, CALL LIGHTS WITHIN REACH, NO COMPLAIN OF PAIN AND DISCOMFORT AT THIS TIME, PATIENT IS A/OX 1-2 MALDIVIAN SPEAKING, AMBULATORY WITH SUPERVISION, UNSTEADY GAIT, IV LINE AT LEFT WRIST WITH ONGOING 0.9NSS@75ML PER HOUR INFUSING WELL, PATIENT KEPT CLEAN AND DRY ALL NEEDS MET, WILL CONTINUE TO MONITOR
[2021-10-31] MEDS: IV NS 0.9% 1,000 ML IV PRN ×2 (05:31→21:03)
[2021-10-31 06:49] LABS: BASOPHILS % (AUTO) 0.3 % (0.0-2.0); EOSINOPHILS % (AUTO) 2.6 % (0.0-6.0); HEMATOCRIT 41 % (39-51); HEMOGLOBIN 14.3 g/dL (13.5-17.5); LYMPHOCYTES # (AUTO) 3.5 K/uL (0.8-4.8); LYMPHOCYTES % (AUTO) 38.1 % (20.0-44.0); MEAN CORPUSCULAR HGB CONC 35 g/dl (31.0-36.0); MEAN CORPUSCULAR VOLUME 91 fL (80-96); MONOCYTES # (AUTO) 0.6 K/uL (0.1-1.30); MONOCYTES % (AUTO) 6.6 % (2.0-12.0); NEUTROPHILS # (AUTO) 4.8 K/uL (1.8-8.9); NEUTROPHILS % (AUTO) 52.4 % (43.0-81.0); PLATELET COUNT (AUTO) 229 K/uL (150-450); RED BLOOD CELL COUNT(AUTO) 4.49 MIL/uL (4.5-6.0); WHITE BLOOD COUNT (AUTO) 9.1 K/uL (4.3-11.0)
--- NOTE | 2021-10-31 06:54 | NUR ---
RN CLOSING NOTE: PATIENT SLEEP IN BED COMFORTABLY AROUSABLE TO VERBAL STIMULI, BED IN LOW POSITION, CALL LIGHTS WITHIN REACH,NO COMPLAIN OF PAIN AND DISCOMFORT AT THIS TIME, PATIENT WAS AMBULATORY WITH SUPERVISION, UNSTEADY GAIT, ON ROOM AIR SATURATING WELL, NO SOB WAS OBSERVED, PATIENT KEPT CLEAN AND DRY ALL NEEDS MET ENDORSE TO INCOMING SHIFT.
--- NOTE | 2021-10-31 07:30 | NUR ---
MS RN OPENING NOTES PATIENT AWAKE IN BED. A/O X2. PATIENT WITH REGULAR AND UNLABORED BREATHING ON ROOM AIR, TOLERATED WELL. NO SIGNS OR SYMPTOMS OF DISTRESS NOTED AT THIS TIME. NO COMPLAINS OF PAIN OR DISCOMFORT AT THIS TIME. P . IV ACCESS L HAND G #20 SL AND R WRIST G # 20 INTACT. FROM LEFT HAND IV SITE IS INFUSING NS @ 75 ML/HR. IV ACCESSES PATENT AND INTACT. SAFETY PRECAUTIONS IN PLACE. SAFETY FOR SEIZURE IN PLACE. NO EPISODE NOTED.DUE MEDS GIVEN ORDERED. BED LOCKED AND AT LOWEST POSITION. SIDE RAILS PADDED FOR SAFETY. CALL LIGHT WITHIN REACH AT ALL TIMES. WILL CONTINUE TO MONITOR.
[2021-10-31 07:57] VITALS: BP 114/70
[2021-10-31 08:20] LABS: CALCIUM, SERUM 8.7 mg/dL (8.5-10.1); CREATININE 0.7 mg/dL (0.6-1.3); POTASSIUM 3.9 mmol/L (3.5-5.1)
[2021-10-31 08:23] LABS: MAGNESIUM 2.4 mg/dL (1.8-2.4); PHOSPHORUS 3.6 mg/dL (2.5-4.9)
[2021-10-31] MEDS: LACOSAMIDE 50 MG TABLET PO SCH ×2 (08:55→20:21)
[2021-10-31] MEDS: LEVETIRACETAM (250 MG) 250 MG TABLET PO SCH ×2 (08:55→20:21)
[2021-10-31] MEDS: DIVALPROEX SODIUM 250 MG TABLET.DR PO SCH ×2 (08:55→16:03)
[2021-10-31] MEDS: ENOXAPARIN SODIUM 40 MG/0.4 ML DISP.SYRIN SQ SCH (08:57)
[2021-10-31 16:00] VITALS: BP 117/73
--- NOTE | 2021-10-31 19:30 | NUR ---
MS RN CLOSING NOTES PATIENT AWAKE IN BED. A/O X2. PATIENT WITH REGULAR AND UNLABORED BREATHING ON ROOM AIR, TOLERATED WELL. NO SIGNS OR SYMPTOMS OF DISTRESS NOTED AT THIS TIME. NO COMPLAINS OF PAIN OR DISCOMFORT AT THIS TIME. P . IV ACCESS L HAND G #20 SL AND R WRIST G # 20 INTACT. FROM RIGHT HAND IV SITE IS INFUSING NS @ 75 ML/HR. IV ACCESSES PATENT AND INTACT. SAFETY PRECAUTIONS IN PLACE. SAFETY FOR SEIZURE IN PLACE. NO EPISODE NOTED.DUE MEDS GIVEN ORDERED. BED LOCKED AND AT LOWEST POSITION. SIDE RAILS PADDED FOR SAFETY. CALL LIGHT WITHIN REACH AT ALL TIMES.ALL DUE MEDS GIVEN ORDERED. WILL ENDORSE FOR PIERO.
--- NOTE | 2021-10-31 19:37 | NUR ---
MS RN OPENING NOTES RECEIVED PT AWAKE IN BED. A/O X2. PT STABLE ON ROOM AIR. NO SOB OR S/S OF RESPIRATORY DISTRESS NOTED. IV ACCESS L HAND G #20 SL AND R WRIST G # 20 INTACT. LEFT HAND IV SITE RUNNING NS @ 75 ML/HR, BOTH SITES INTACT AND PATENT. SAFETY PRECAUTIONS IN PLACE. SAFETY FOR SEIZURE IN PLACE. BED IN LOWEST LOCKED POSITION, HOB ELEVATED, SIDE RAILS UP AND PADDED OF SAFETY, AND CALL LIGHT AND TABLE WITHIN REACH. WILL CONTINUE WITH PLAN OF CARE.
[2021-10-31 20:00] VITALS: BP 109/69
[2021-11-01 07:00] LABS: BASOPHILS % (AUTO) 0.5 % (0.0-2.0); EOSINOPHILS % (AUTO) 2.8 % (0.0-6.0); HEMATOCRIT 40 % (39-51); HEMOGLOBIN 13.7 g/dL (13.5-17.5); LYMPHOCYTES # (AUTO) 4.3 K/uL (0.8-4.8); LYMPHOCYTES % (AUTO) 44.1 % (20.0-44.0); MEAN CORPUSCULAR HGB CONC 35 g/dl (31.0-36.0); MEAN CORPUSCULAR VOLUME 92 fL (80-96); MONOCYTES # (AUTO) 0.6 K/uL (0.1-1.30); MONOCYTES % (AUTO) 6.1 % (2.0-12.0); NEUTROPHILS # (AUTO) 4.5 K/uL (1.8-8.9); NEUTROPHILS % (AUTO) 46.5 % (43.0-81.0); PLATELET COUNT (AUTO) 219 K/uL (150-450); RED BLOOD CELL COUNT(AUTO) 4.29 MIL/uL (4.5-6.0); WHITE BLOOD COUNT (AUTO) 9.8 K/uL (4.3-11.0)
--- NOTE | 2021-11-01 07:00 | NUR ---
MS RN CLOSING NOTES PT AWAKE IN BED. A/O X2. PT STABLE ON ROOM AIR. NO SOB OR S/S OF RESPIRATORY DISTRESS NOTED. IV ACCESS L HAND G #20 SL AND R WRIST G # 20 INTACT. LEFT HAND IV SITE RUNNING NS @ 75 ML/HR, BOTH SITES INTACT AND PATENT. ALL NEEDS MET AT THIS TIME. SAFETY PRECAUTIONS IN PLACE AT ALL TIMES. SAFETY FOR SEIZURE IN PLACE. BED IN LOWEST LOCKED POSITION, HOB ELEVATED, SIDE RAILS UP AND PADDED OF SAFETY, AND CALL LIGHT AND TABLE WITHIN REACH. WILL ENDORSE TO ONCOMING NURSE FOR PIERO.
[2021-11-01 07:10] LABS: CALCIUM, SERUM 8.1 mg/dL (8.5-10.1); CREATININE 0.7 mg/dL (0.6-1.3)
--- NOTE | 2021-11-01 07:55 | NUR ---
DEMETRI RN OPENING NOTE Patient in bed, awake. A/O x 2. On room air, breathing evenly and unlabored. No SOB or s/s of distress noted. IV access on Left hand #22G infusing NS at 75 ml/hr and Right hand #20G SL, intact and patent. Safety precautions in place: bed in low, locked position; siderails up x 2; call light within reach. Will continue to monitor.
[2021-11-01 08:00] VITALS: BP 113/77
[2021-11-01] MEDS: LACOSAMIDE 50 MG TABLET PO SCH (08:42)
[2021-11-01] MEDS: DIVALPROEX SODIUM 250 MG TABLET.DR PO SCH ×2 (08:42→16:39)
[2021-11-01] MEDS: LEVETIRACETAM (250 MG) 250 MG TABLET PO SCH (08:42)
[2021-11-01] MEDS: ENOXAPARIN SODIUM 40 MG/0.4 ML DISP.SYRIN SQ SCH (08:43)
[2021-11-01 16:00] VITALS: BP 113/65
--- NOTE | 2021-11-01 17:30 | NUR ---
DISCHARGE NOTE Received order for discharge. Mckinley is A/O x 2. Stable on room air, breathin gevenly and unlabored. No SOB or s/s of distress noted. Patient denies any pain or discomfort at this time. Patient's belongings accounted for. IV access on Right wrist and Left hand removed, catheter tip intact. Pressure dressing applied, no signs of bleeding noted. ID band removed. Discharge instructions and exitcare folder given to Fanny, patient's mother, who verbalized understanding. Patient left in stable condition via private car with Fanny, mother.
== END 2021-11-01 17:50 | disposition home or self-care (01) | DRG 100 ==
LOC: ER 04:15 → TRANSITION 05:02 → TELE 20:07 → MED 10-30 15:30
PROVIDERS: ADMIT Hospitalist; ATTEND Nurse Practitioner Acute Care
DX: G40.901 Epilepsy, unspecified, not intractable, with status epilepticus (principal); I62.03 Nontraumatic chronic subdural hemorrhage; G93.89 Other specified disorders of brain; Z20.822 Contact with and (suspected) exposure to COVID-19; Z98.890 Other specified postprocedural states; Z79.899 Other long term (current) drug therapy; G93.0 Cerebral cysts; Z86.011 Personal history of benign neoplasm of the brain
CPT/HCPCS: 36415; 70450-TC; 71045-TC; 80048-TC; 80053-TC; 80076-TC; 80164-TC; 80185-TC; 83605-TC; 83735-TC; 84100-TC; 85025-TC; 87081-TC; 95819-TC; G0378; G0480; J1650; J2060; J7030

== ENCOUNTER 2022-03-05 12:01 | Emergency (ER) | payer MEDICARE, OTHER ==
[~2022-03-05] VITALS: Ht 177.8 cm; Wt 113.4 kg
[~2022-03-05 12:01] MED LIST changes: -CLON0.5T4 PO; +LACO200T2 PO; +NAPR-1009 PO; -PHEN100C4 PO
--- NOTE | 2022-03-05 12:21 | NUR ---
To ER bed 3, GILDARDO RA81 From Home "Seizure/post ictal/given Ativan SL" BS-118, aaox2, breathing even and non labored, connected to monitor, awaiting md coon
--- NOTE | 2022-03-05 12:35 | NUR ---
MARINE MACHINIST AT BEDSIDE
[2022-03-05 12:40] LABS: BASOPHILS % (AUTO) 0.4 % (0.0-2.0); EOSINOPHILS % (AUTO) 2.5 % (0.0-6.0); HEMATOCRIT 42 % (39-51); HEMOGLOBIN 14.8 g/dL (13.5-17.5); LYMPHOCYTES # (AUTO) 4.7 K/uL (0.8-4.8); LYMPHOCYTES % (AUTO) 53.1 % (20.0-44.0); MEAN CORPUSCULAR HGB CONC 35 g/dl (31.0-36.0); MEAN CORPUSCULAR VOLUME 92 fL (80-96); MONOCYTES # (AUTO) 0.5 K/uL (0.1-1.30); MONOCYTES % (AUTO) 5.3 % (2.0-12.0); NEUTROPHILS # (AUTO) 3.4 K/uL (1.8-8.9); NEUTROPHILS % (AUTO) 38.7 % (43.0-81.0); PLATELET COUNT (AUTO) 184 K/uL (150-450); RED BLOOD CELL COUNT(AUTO) 4.59 MIL/uL (4.5-6.0); WHITE BLOOD COUNT (AUTO) 8.9 K/uL (4.3-11.0)
--- NOTE | 2022-03-05 12:45 | NUR ---
PATIENT BROUGHT TO CT SCAN BY ALUM PLANT OPERATOR
[2022-03-05 12:57] LABS: CALCIUM, SERUM 8.6 mg/dL (8.5-10.1); CARBON DIOXIDE 32 mmol/L (21-32); CHLORIDE 107 mmol/L (98-107); CREATININE 0.7 mg/dL (0.6-1.3); GLUCOSE 96 mg/dL (74-106); POTASSIUM 3.6 mmol/L (3.5-5.1); SODIUM SERUM 143 mmol/L (136-145); UREA NITROGEN, BLOOD 11 mg/dL (7-18)
[2022-03-05 13:00] LABS: ALANINE AMINOTRANSFERASE 32 U/L (12-78); ALBUMIN 3.6 g/dL (3.4-5.0); ALKALINE PHOSPHATASE 61 U/L (46-116); ASPARTATE AMINOTRANSFERASE 31 U/L (15-37); BILIRUBIN,DIRECT 0.1 mg/dL (0.0-0.2); BILIRUBIN,TOTAL 0.3 mg/dL (0.2-1.0)
[2022-03-05 13:16] LABS: ALCOHOL, BLOOD < 3 mg/dL (0-0)
--- NOTE | 2022-03-05 14:02 | NUR ---
DR. MAZA SPEAKING WITH DR. MIGUEL.
--- NOTE | 2022-03-05 14:26 | NUR ---
WILL BE PICKED UP AT 1515 BY MOTHER BHARATHI
--- NOTE | 2022-03-05 15:40 | NUR ---
PICKED UP MOTHER BHARATHI IN STABLE CONDITION
[2022-03-05 15:43] VITALS: BP 139/64
== END 2022-03-05 15:43 | disposition home or self-care (01) ==
LOC: ER 12:06
DX: G40.909 Epilepsy, unspecified, not intractable, without status epilepticus (principal); Z86.69 Personal history of other diseases of the nervous system and sense organs; Z79.899 Other long term (current) drug therapy
CPT/HCPCS: 36415; 70450-TC; 71045-TC; 80048-TC; 80076-TC; 80164-TC; 85025-TC; 85730-TC; G0480

== ENCOUNTER 2022-03-19 01:45 | Emergency (ER) | payer MEDICARE, OTHER ==
[~2022-03-19] VITALS: Ht 177.8 cm; Wt 113.4 kg
--- NOTE | 2022-03-19 02:00 | NUR ---
[id number] FROM HOME C/O GLF AROUND 11PM, SCRAPE TO BACK OF HEAD. PATIENT HAS HEALED SURGICAL WOUND AT THE LEFT SIDE OF HEAD. PLACED COMFORTABLY IN BED. VITALS CHECKED.
--- NOTE | 2022-03-19 02:00 | NUR ---
PATIENT HAS WEAKNESS ON LEFT SIDE OF THE BODY
--- NOTE | 2022-03-19 02:28 | NUR ---
taken to radiology
[2022-03-19] MEDS ORDERED: IOHEXOL-350 100 ML VIAL IV ONE (02:59)
[2022-03-19] MEDS ORDERED: IV NS 0.9% 250 ML IV ONE (03:00)
[2022-03-19] MEDS ORDERED: CT SWABBABLE VALVE TRANS SET 1 EA INFUS.SET MC ONE (03:00)
--- NOTE | 2022-03-19 03:01 | NUR ---
SPOKE WITH HILLARY FROM [facility] REQUESTING TO HAVE A STAT/EXPEDITED READ FOR A POSSIBLE BLEED.
--- NOTE | 2022-03-19 03:05 | NUR ---
IV CANNULA G20 INSERTED ON RIGHT FA.
--- NOTE | 2022-03-19 03:16 | NUR ---
PT RETURNED TO ER BED [address]
--- NOTE | 2022-03-19 03:20 | NUR ---
LAB AT BEDSIDE
--- NOTE | 2022-03-19 03:21 | NUR ---
TOOL MACHINE SHOP SUPERVISOR AT BEDSIDE
--- NOTE | 2022-03-19 03:23 | NUR ---
RADIOLOGY RESULT SENT TO DR. SETH FOR CONSULT
--- NOTE | 2022-03-19 03:31 | NUR ---
DR. SETH ON THE PHONE WITH DR. ANTOINE
--- NOTE | 2022-03-19 03:34 | NUR ---
COVID SWAB DONE AND SENT TO LAB
--- NOTE | 2022-03-19 03:47 | NUR ---
SPOKE WITH [facility]. P/U IS AT 30-35MIN PIZZA HUT ASSISTANT
--- NOTE | 2022-03-19 03:58 | NUR ---
RECEIVED A CALL FROM DOLLY OF [facility]. SHE ASKED TO FAX FACESHEET AND COVID RESULT TO PHONE # [phone] CALLED [facility] ICU. PATIENT WILL BE IN RM [id number]. REPORT GIVEN TO JANENE CORONA WITH PHONE # [phone]
[2022-03-19 04:01] LABS: ALBUMIN 3.7 g/dL (3.4-5.0); BILIRUBIN,DIRECT 0.1 mg/dL (0.0-0.2); BILIRUBIN,TOTAL 0.3 mg/dL (0.2-1.0); CALCIUM, SERUM 8.3 mg/dL (8.5-10.1); CREATININE 0.9 mg/dL (0.6-1.3); POTASSIUM 3.6 mmol/L (3.5-5.1); TOTAL PROTEIN, SERUM 6.9 g/dL (6.4-8.2)
[2022-03-19 04:13] LABS: BASOPHILS % (AUTO) 0.1 % (0.0-2.0); EOSINOPHILS % (AUTO) 0.1 % (0.0-6.0); HEMATOCRIT 39 % (39-51); HEMOGLOBIN 13.4 g/dL (13.5-17.5); LYMPHOCYTES # (AUTO) 1.9 K/uL (0.8-4.8); LYMPHOCYTES % (AUTO) 14.5 % (20.0-44.0); MEAN CORPUSCULAR HGB CONC 34 g/dl (31.0-36.0); MEAN CORPUSCULAR VOLUME 94 fL (80-96); MONOCYTES # (AUTO) 0.9 K/uL (0.1-1.30); MONOCYTES % (AUTO) 6.8 % (2.0-12.0); NEUTROPHILS # (AUTO) 10.2 K/uL (1.8-8.9); NEUTROPHILS % (AUTO) 78.5 % (43.0-81.0); PLATELET COUNT (AUTO) 190 K/uL (150-450); RED BLOOD CELL COUNT(AUTO) 4.17 MIL/uL (4.5-6.0)
--- NOTE | 2022-03-19 04:45 | NUR ---
FAX REPORT TO DOLLY. CALLED [facility] SPOKE TO RN JENIFFER. INFORMED HIM THAT PATIENT IS COVID (-)
--- NOTE | 2022-03-19 04:46 | NUR ---
FOLLWED UP ON TRANSPORT. AMBULANCE IS ENROUTE, EXITING THE FREEWAY PER DISPATCH
--- NOTE | 2022-03-19 05:00 | NUR ---
REPORT GIVEN TO OLAF SALAZAR WITH JANENE OLIVARES.
--- NOTE | 2022-03-19 05:20 | NUR ---
PATIENT BEING TRANSFERRED TO [facility] VIA [facility].
[2022-03-19 05:25] VITALS: BP 153/81
--- NOTE | 2022-03-19 05:29 | NUR ---
HEAD CTA RESULT SENT TO DR. SETH AFTER DR. ANTOINE SPOKE WITH HIM THE SECOND TIME.
== END 2022-03-19 05:26 | disposition short-term general hospital (02) ==
LOC: ER 01:55
DX: S06.350A Traumatic hemorrhage of left cerebrum without loss of consciousness, initial encounter (principal); R40.2132 Coma scale, eyes open, to sound, at arrival to emergency department; R40.2362 Coma scale, best motor response, obeys commands, at arrival to emergency department; R40.2242 Coma scale, best verbal response, confused conversation, at arrival to emergency department; W01.0XXA Fall on same level from slipping, tripping and stumbling without subsequent striking against object, initial encounter; Y92.019 Unspecified place in single-family (private) house as the place of occurrence of the external cause; D72.829 Elevated white blood cell count, unspecified; Z86.03 Personal history of neoplasm of uncertain behavior; Z86.69 Personal history of other diseases of the nervous system and sense organs; Z79.899 Other long term (current) drug therapy; G96.08 Other cranial cerebrospinal fluid leak; Z20.822 Contact with and (suspected) exposure to COVID-19
CPT/HCPCS: 36415; 70450; 70496; 70498; 80048; 80076; 85025; 85730; 87426; 93005; 99285; J7050; Q9967; C9803